=== PATIENT | male | born 1975 | race Caucasian/White ===

== ENCOUNTER 2024-02-21 15:41 | Emergency (ER) | payer SELFPAY ==
[2024-02-21] MEDS ORDERED: Morphine 4 MG/ML VIAL ONE (15:55)
[2024-02-21] MEDS ORDERED: Aspirin 325 mg Enteric Coated Tablet ONE (15:55)
[2024-02-21] MEDS ORDERED: Ondansetron PF 4 MG/2 ML Vial ONE (15:55)
[2024-02-21 16:04] LABS: #Basophils 0.05 10x3/uL (0.0-0.2); #Monocytes 0.97 10x3/uL (0.0-1.1); #Neutrophils 6.87 10x3/uL (1.5-8.4); %Basophils 0.5 % (0.0-2.0); %Lymphocytes 18.9 % (18.0-47.0); %Monocytes 9.8 % (0.0-10.0); %Neutrophils 69.3 % (40.0-75.0); Hematocrit 46.1 % (38.8-50.0); Hemoglobin 16.5 g/dL (13.5-17.5); Mean Corpuscular HGB CONC 35.8 g/dL (32.0-36.0); Mean Corpuscular Hemoglobin 31.4 pg (27.0-33.0); Mean Corpuscular Volume 87.8 fL (81.2-95.1); Mean Platelet Volume 10.9 fL (7.4-10.4); Platelet Count 243 10x3/uL (150-450); RBC Distribution Width 12.1 % (11.5-14.5); Red Blood Cell (RBC) Count 5.25 10x6/uL (4.32-5.72); White Blood Cell (WBC) Count 9.9 10x3/uL (3.5-10.5)
[2024-02-21 16:18] LABS: ALT (SGPT) 54 U/L (8-55); AST (SGOT) 72 U/L (5-34); Albumin 5.3 g/dL (3.5-5.0); Alkaline Phosphatase 112 U/L (40-110); Anion Gap 30 mmol/L (10-20); BUN (Urea Nitrogen) 27 mg/dL (8.9-20.6); Bilirubin, Total 1.4 mg/dL (0.2-1.2); Calc. Creatinine Clearance 0 mL/min (70-130); Calcium 11.7 mg/dL (7.8-10.44); Carbon Dioxide 20 mmol/L (22-29); Chloride 90 mmol/L (98-107); Estimated GFR 22; Globulin 4.6 g/dL (2.4-3.5); Glucose 127 mg/dL (70-105); Lipase 60 U/L (8-78); Potassium 4.2 mmol/L (3.5-5.1); Protein, Total 9.9 g/dL (6.0-8.3); Sodium 136 mmol/L (136-145)
[2024-02-21 16:22] LABS: Troponin I Less than 0.010 ng/mL (< 0.028)
[2024-02-21 18:43] LABS: Anion Gap 14 mmol/L (10-20); BUN (Urea Nitrogen) 23 mg/dL (8.9-20.6); Calc. Creatinine Clearance 0 mL/min (70-130); Calcium 9.4 mg/dL (7.8-10.44); Carbon Dioxide 25 mmol/L (22-29); Chloride 98 mmol/L (98-107); Estimated GFR 44; Glucose 130 mg/dL (70-105); Potassium 4.4 mmol/L (3.5-5.1); Sodium 133 mmol/L (136-145); Troponin I Less than 0.010 ng/mL (< 0.028)
[2024-02-21 19:25] LABS: Bilirubin Neg (Negative); Blood, Urine 150 (Negative); Clarity Clear (Clear); Glucose, Urine (Dipstick) Normal (Negative); Ketone, Urine Negative (Negative); Leukocyte Negative (Negative); Nitrite Negative (Negative); Protein, Urine (Dipstick) 15 mg/dl (Neg-Trace); Specific Gravity, Urine 1.005 (1.005-1.030); Urobilinogen Normal mg/dL (Less than 2)
[2024-02-21 19:32] LABS: Amphetamine Not Detected (NotDetected); Barbiturates Screen Not Detected (NotDetected); Benzodiazepine Screen Not Detected (NotDetected); Cocaine Metabolite Screen Not Detected (NotDetected); Methadone Not Detected (NotDetected); Methamphetamine Not Detected (NotDetected); Opiate Screen Detected (NotDetected); Oxycodone Screen Not Detected (NotDetected); Phencyclidine (PCP) Not Detected (NotDetected); THC/Cannabinoid Screen Not Detected (NotDetected); Tricyclic Screen Not Detected (NotDetected)
[2024-02-21 19:36] LABS: Bacteria/HPF Rare-Few HPF (None Seen); CAUTI Indications for Culture Pelvic or flank pain; Squamous Epithelial 0-3 HPF (0-3); WBC/HPF None Seen HPF (0-3)
[2024-02-21 19:37] LABS: Urine Culture Reflex No No
== END 2024-02-21 19:21 | disposition home or self-care (01) ==
LOC: CSHERS 15:41
DX: R07.89 Other chest pain (principal); N18.9 Chronic kidney disease, unspecified; E86.0 Dehydration
CPT/HCPCS: 36415; 71045; 80053; 80306; 81001; 83690; 83880; 84484; 85025; 85379; 93005; 96361; 96374; 96375; J2270; J2405